=== PATIENT | female | born 1995 | race Hispanic/Latino ===

== ENCOUNTER → 2016-10-23 | Outpatient (REF) | payer OTHER ==
[2016-10-23 11:34] LABS: MEAN CORPUSCULAR HEMOGLOBIN 30.3 pg (27.0-33.0); MEAN CORPUSCULAR HGB CONC 33.9 g/dl (32.0-36.5); MEAN CORPUSCULAR VOLUME 89.2 fl (80.0-96.0); RED CELL DISTRIBUTION WIDTH 12.5 % (11.5-14.5); WHITE BLOOD COUNT 5.6 K/mm3 (4.0-10.0)
[2016-10-23 11:53] LABS: FREE T4 0.95 NG/DL (0.76-1.46)
== END ==
LOC: M SFHCLERA 09:02
PROVIDERS: ATTEND Family Medicine
DX: R68.89 Other general symptoms and signs (principal); R63.6 Underweight

== ENCOUNTER → 2016-11-12 | Outpatient (REF) | payer OTHER | LOC: M SFHCLERA 12:19 | PROVIDERS: ATTEND Nurse Practitioner Family | DX: R10.9 Unspecified abdominal pain (principal) ==

== ENCOUNTER → 2017-09-12 | Outpatient (REF) | payer OTHER | LOC: M SFHCLERA 11:30 | DX: J02.9 Acute pharyngitis, unspecified (principal) ==

== ENCOUNTER 2018-01-08 20:08 | Emergency (ER) | payer OTHER ==
[2018-01-08 21:41] LABS: INFLUENZA A AMPLIFICATION NEGATIVE (NEGATIVE); INFLUENZA B AMPLIFICATION NEGATIVE (NEGATIVE)
[2018-01-08] MEDS: IPRATROPIUM 0.5MG/ALBUTEROL 2.5MG INH SOL UD 3ML (DUONEB)(J7620) NEB (22:15)
[2018-01-08] MEDS: predniSONE 20 MG TAB PO (22:15)
== END 2018-01-08 23:07 | disposition home or self-care (01) ==
LOC: M ED 20:08
DX: J20.9 Acute bronchitis, unspecified (principal); J45.901 Unspecified asthma with (acute) exacerbation; Z87.891 Personal history of nicotine dependence
CPT/HCPCS: 71046

== ENCOUNTER → 2018-02-27 | Outpatient (CLI) | payer OTHER ==
[~2018-02-27] MED LIST: BENZ200C70 PO; CETI10TA; FLUTISP; MONT10TA2; PRED20TA PO
--- NOTE | 2018-02-27 16:57 | REP ---
NON-OB PELVIC ULTRASOUND: HISTORY: Evaluate IUD placement. The uterus is normal in echogenicity. The uterus measures 5.1 cm in transverse x 3.8 cm in AP x 7.4 cm in cephalocaudal dimensions. The endometrium measures 5.4 mm. The IUD appears to be in place. A nabothian cyst is present. The right ovary measures 2.9 x 2 x 3.4 cm. A 1.7 cm cyst is present in the right ovary. The left ovary measures 2.7 x 1.6 x 2.7 cm. Fluid is present in the cul-de-sac. IMPRESSION: 1. An IUD is present that appears to be in the uterus. 2. 1.7 cm right ovarian cyst. 3. Fluid is present in the cul-de-sac. Electronically Signed by Wade Flores MD 02/27/2018 04:58 P
== END ==
LOC: M LRY 14:32
PROVIDERS: ATTEND Family Medicine
DX: Z30.431 Encounter for routine checking of intrauterine contraceptive device (principal)

== ENCOUNTER → 2018-03-09 | Outpatient (REF) | payer OTHER | LOC: M SFHCLERA 14:42 | PROVIDERS: ATTEND Nurse Practitioner Family | DX: R19.7 Diarrhea, unspecified (principal) ==